=== PATIENT | male | born 1975 | race Caucasian/White ===

== ENCOUNTER 2016-10-17 06:37 | Emergency (ER) | payer BC ==
[~2016-10-17] VITALS: Ht 180.3 cm; Wt 90.0 kg
[~2016-10-17 06:37] MED LIST: ADVI200T PO; CYCL5TAB PO; IBUP-1116 PO
[2016-10-17 06:44] VITALS: BP 133/98; PULSE 76; RESP 16; TEMP 98.5; O2SAT 100
[2016-10-17 07:02] VITALS: BP 133/98; PULSE 76; RESP 16; TEMP 98.3; O2SAT 100
[2016-10-17] MEDS ORDERED: NAPR500T PO (07:25)
--- NOTE | 2016-10-17 07:26 | PD ---
HPI Chief Complaint: Musculoskeletal Complaint Time Seen by Provider: 07:11 Travel History International Travel<30 days: No Contact w/Intl Traveler<30days: No Traveled to known affect area: No History of Present Illness HPI This is a 41-year-old male who presents the emergency department having rolled over in bed when he felt something in his neck pop. Since then he's had severe pain in his right neck, constant, worse with moving his head from side to side, with no associated numbness or weakness. He's never had pain like this before. He has had problems with his low back but never his neck. 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 He didn't take anything for the pain this morning. PFSH Past Medical History Medical other: Yes (chronic back pain) Tetanus Vaccination: Unknown Influenza Vaccination: No Past Surgical History Oral Surgery: Yes (wisdom teeth) Social History Alcohol Use: Yes (occa. beer) Tobacco Use: No Substance Use: No Allergies-Medications (Allergen,Severity, Reaction): Coded Allergies: No Known Allergies (Unverified , 11/27/15) Reported Meds & Prescriptions Reported Meds & Active Scripts Active No Active Prescriptions or Reported Medications Review of Systems General / Constitutional: No: Fever, Chills Respiratory: No: Shortness of Breath Physical Exam Narrative GENERAL: Well-nourished, well-developed patient. SKIN: Warm and dry. HEAD: Normocephalic. EYES: No scleral icterus. No injection or drainage. NECK: Supple, trachea midline. CARDIOVASCULAR: Regular rate and rhythm without murmurs. 2+ right radial pulse with normal capillary refill. RESPIRATORY: Breath sounds equal bilaterally. No accessory muscle use. GASTROINTESTINAL: Abdomen soft, non-tender, nondistended. MUSCULOSKELETAL: Tender to palpation over the right upper trapezius muscle in the paracervical area. No focal tenderness along the shoulder or clavicle. Full painless range of motion of the shoulder with normal shoulder medial and lateral rotation against resistance and normal supraspinatus test Data Data Last Documented VS Vital Signs Date Time Temp Pulse Resp B/P Pulse Ox O2 Delivery O2 Flow Rate FiO2 10/17/16 07:07 16 10/17/16 07:02 98.3 76 133/98 100 Orders Orphenadrine Inj (Norflex Inj) (10/17/16 07:30) Ketorolac Inj (Toradol Inj) (10/17/16 07:30) [facility] Medical Decision Making Medical Screen Exam Complete: Yes Emergency Medical Condition: Yes Interpretation(s) afebrile, no tachycardia, mild hypertension Differential Diagnosis Rotator cuff injury, bursitis, cervical strain Narrative Course This is a 41-year-old male who presents to the emergency department with pain along the right side of his neck that started when he woke up this morning. He is tender along the right upper trapezius muscle in the cervical area. He has a normal neurovascular exam otherwise no evidence of a rotator cuff injury. I think patient is appropriate for anti-inflammatories and outpatient follow-up. Diagnosis Primary Impression: Trapezius muscle strain Qualified Code: S46.811A - Trapezius muscle strain, right, initial encounter Patient Instructions: General Instructions Additional Instructions: If you develop severe pain, numbness or weakness return to the emergency department. Follow-up with an orthopedic physician if you're not well in one week. Med/Other Pt SpecificInfo: Prescription(s) given Scripts Naproxen 500 Mg Ttz058 Mg PO BID PRN (PAIN SCALE 4 TO 10) #20 TAB Prov:Brinda Murrya MD 10/17/16 Disposition: 01 DISCHARGE HOME Condition: Stable Brinda Murray MD Oct 17, 2016 07:26
[2016-10-17] MEDS ORDERED: ORPHENADRINE INJ 60 MG/2 ML AMP IM ONE (07:30)
[2016-10-17] MEDS ORDERED: KETOROLAC TROMETHAMINE 60 MG/2 ML (IM) VIAL IM ONE (07:30)
== END 2016-10-17 07:48 | disposition home or self-care (01) ==
LOC: PHED 06:37
DX: S46.811A Strain of other muscles, fascia and tendons at shoulder and upper arm level, right arm, initial encounter (principal); G89.29 Other chronic pain; M54.5 Low back pain
CPT/HCPCS: 96372; 99283; J1885; J2360